=== PATIENT | male | born 1975 | race Caucasian/White ===

== ENCOUNTER 2018-04-06 13:19 | Inpatient (IN) | payer BC ==
[~2018-04-06] VITALS: Ht 190.5 cm; Wt 99.8 kg
[2018-04-06 13:28] VITALS: BP_SYST 150
[2018-04-06] MEDS ORDERED: PIPERACILLIN/TAZO 3.38 GM in NS 50 ML IV ONE (14:15)
[2018-04-06] MEDS ORDERED: MORPHINE 4 MG/ML INJ. SYRINGE IVP ONE (14:15)
[2018-04-06] MEDS ORDERED: DIPHENHYDRAMINE INJ 50 MG/ML VIAL IVP ONE (14:15)
[2018-04-06 14:18] LABS: BILIRUBIN,URINE NEGATIVE (NEGATIVE); BLOOD, URINE NEGATIVE (NEGATIVE); CLARITY/URINE CLEAR (CLEAR); COLOR,URINE YELLOW (YELLOW); GLUCOSE,URINE NEGATIVE (NEGATIVE); KETONES,URINE NEGATIVE (NEGATIVE); LEUKOCYTE ESTERASE ,URINE NEGATIVE (NEGATIVE); NITRITE, URINE NEGATIVE (NEGATIVE); PH,URINE 7.5 (5.0-8.0); PROTEIN URINE NEGATIVE (NEGATIVE); UROBILINOGEN,URINE 0.2 (0.2-1.0)
[2018-04-06 14:38] LABS: BASOPHILS # (AUTO) 0.1 K/uL (0.0-0.2); BASOPHILS % (AUTO) 1.3 % (0.0-2.0); EOSINOPHILS # (AUTO) 0.1 K/uL (0.0-0.4); EOSINOPHILS % (AUTO) 1.2 % (0.0-4.0); HEMATOCRIT 44.5 % (36-54)
[2018-04-06 14:41] LABS: HEMOGLOBIN 14.4 g/dL (14.0-18.0); LYMPHOCYTES # (AUTO) 2.2 K/uL (1.0-5.5); LYMPHOCYTES % (AUTO) 27.9 % (20.5-51.5); MEAN CORPUSCULAR HEMOGLOBIN 29 pg (27-31); MEAN CORPUSCULAR HGB CONC 33 % (32-36); MEAN CORPUSCULAR VOLUME 89 fL (79.0-98.0); MONOCYTES # (AUTO) 0.7 K/uL (0.0-1.0); MONOCYTES % (AUTO) 8.3 % (1.7-9.3); NEUTROPHILS # (AUTO) 4.9 K/uL (1.8-7.7); NEUTROPHILS % (AUTO) 61.3 % (40.0-70.0); PLATELET COUNT (AUTO) 265 K/uL (130-430); RED BLOOD CELL COUNT(AUTO) 4.98 MIL/uL (4.2-6.2); RED CELL DISTRIBUTION WIDTH 12.9 % (9.0-15.0)
[2018-04-06 14:50] LABS: CALCIUM 9.9 mg/dL (8.4-11.0); CREATININE 0.94 mg/dL (0.55-1.30); POTASSIUM 4.3 mmol/L (3.5-5.1)
[2018-04-06] MEDS ORDERED: PIPERACILLIN/TAZOBACTAM 3.375 GM/VIAL (ZOSYN) IV ONE (14:50)
[2018-04-06 14:54] LABS: ALBUMIN 4.1 g/dL (3.4-4.8); TOTAL BILIRUBIN 0.9 mg/dL (0.0-1.0)
[2018-04-06] MEDS ORDERED: OXYC-580 PO (15:01)
[2018-04-06] MEDS ORDERED: ADAL20SY SQ (15:01)
[2018-04-06] MEDS ORDERED: ONDANSETRON HCL 4 MG/2 ML VIAL IVP PRN ×3 (15:45→19:30)
[2018-04-06] MEDS ORDERED: MORPHINE 4 MG/ML INJ. SYRINGE IVP PRN (15:45)
[2018-04-06] MEDS ORDERED: ACETAMINOPHEN 325 MG TABLET PO PRN (15:45)
[2018-04-06 16:06] VITALS: BP_SYST 149
[2018-04-06] MEDS: NACL 0.9% 1,000 ML IV SCH ×2 (16:21→23:45)
[2018-04-06] MEDS ORDERED: ACETAMINOPHEN/CODEINE 300 MG-30 MG TABLET PO PRN (18:30)
[2018-04-06] MEDS ORDERED: KETOROLAC TROMETHAMINE 30 MG VIAL IVP PRN (19:30)
[2018-04-06] MEDS ORDERED: fentaNYL CITRATE/PF 100 MCG/2 ML AMP IVP PRN ×2 (19:30)
[2018-04-06] MEDS ORDERED: fentaNYL CITRATE/PF 100 MCG/2 ML AMP ONE (21:12)
[2018-04-06] MEDS ORDERED: ONDANSETRON HCL 4 MG/2 ML VIAL ONE (21:14)
[2018-04-06 21:40] VITALS: BP_SYST 143
[2018-04-06 22:00] VITALS: BP_SYST 137
[2018-04-06] MEDS: MORPHINE 4 MG/ML INJ. SYRINGE IVP PRN (22:01)
[2018-04-06] MEDS: PIPERACILLIN/TAZO 3.375 GM in NS 50 ML IV SCH (23:01)
[2018-04-07 00:26] VITALS: BP_SYST 137
[2018-04-07] MEDS: MORPHINE 4 MG/ML INJ. SYRINGE IVP PRN ×3 (02:20→11:20)
[2018-04-07] MEDS: NACL 0.9% 1,000 ML IV SCH ×3 (05:01→22:50)
[2018-04-07] MEDS: PIPERACILLIN/TAZO 3.375 GM in NS 50 ML IV SCH ×3 (05:02→18:17)
[2018-04-07 06:45] LABS: BASOPHILS # (AUTO) 0.1 K/uL (0.0-0.2); BASOPHILS % (AUTO) 0.6 % (0.0-2.0); EOSINOPHILS % (AUTO) 0.1 % (0.0-4.0); HEMOGLOBIN 13.8 g/dL (14.0-18.0); LYMPHOCYTES # (AUTO) 1.5 K/uL (1.0-5.5); LYMPHOCYTES % (AUTO) 16.5 % (20.5-51.5); MEAN CORPUSCULAR HEMOGLOBIN 29 pg (27-31); MEAN CORPUSCULAR HGB CONC 32 % (32-36); MEAN CORPUSCULAR VOLUME 89 fL (79.0-98.0); MONOCYTES # (AUTO) 0.6 K/uL (0.0-1.0); MONOCYTES % (AUTO) 6.8 % (1.7-9.3); NEUTROPHILS # (AUTO) 6.7 K/uL (1.8-7.7); PLATELET COUNT (AUTO) 251 K/uL (130-430); RED BLOOD CELL COUNT(AUTO) 4.81 MIL/uL (4.2-6.2); WHITE BLOOD COUNT (AUTO) 8.9 K/uL (4.8-10.8)
[2018-04-07 07:12] LABS: ALBUMIN 3.4 g/dL (3.4-4.8); CALCIUM 9.3 mg/dL (8.4-11.0); CREATININE 1.15 mg/dL (0.55-1.30); POTASSIUM 4.1 mmol/L (3.5-5.1); TOTAL BILIRUBIN 0.8 mg/dL (0.0-1.0)
[2018-04-07] MEDS ORDERED: MORPHINE 4 MG/ML INJ. SYRINGE IVP ONE ×2 (08:45)
[2018-04-07] MEDS: PANTOPRAZOLE SODIUM 40 MG/VIAL (PROTONIX) IVP SCH (08:54)
[2018-04-07 09:16] VITALS: BP_SYST 135
[2018-04-07 12:02] VITALS: BP_SYST 154
[2018-04-07] MEDS: HYDROmorphone 1 MG INJ. 1 MG/ML AMPUL IVP PRN ×3 (12:14→18:46)
[2018-04-07] MEDS ORDERED: DOCUSATE SODIUM 100 MG CAPSULE PO PRN (15:45)
[2018-04-07] MEDS ORDERED: TEMAZEPAM 7.5 MG CAPSULE PO PRN (18:00)
[2018-04-07] MEDS ORDERED: HYDROcodone/ACETAMIN 10-325 MG TAB PO PRN (18:00)
[2018-04-07 19:50] VITALS: BP_SYST 144
[2018-04-07] MEDS: HYDROcodone/ACETAMIN 10-325 MG TAB PO PRN (22:49)
[2018-04-08] VITALS: BP_SYST 117
[2018-04-08] MEDS: HYDROmorphone 1 MG INJ. 1 MG/ML AMPUL IVP PRN (00:05)
[2018-04-08] MEDS: PIPERACILLIN/TAZO 3.375 GM in NS 50 ML IV SCH ×4 (00:06→17:09)
[2018-04-08] MEDS: HYDROcodone/ACETAMIN 10-325 MG TAB PO PRN ×3 (05:49→20:09)
[2018-04-08 07:30] LABS: BASOPHILS % (AUTO) 0.4 % (0.0-2.0); EOSINOPHILS # (AUTO) 0.2 K/uL (0.0-0.4); EOSINOPHILS % (AUTO) 2.3 % (0.0-4.0); HEMATOCRIT 39.7 % (36-54); LYMPHOCYTES # (AUTO) 2.4 K/uL (1.0-5.5); LYMPHOCYTES % (AUTO) 29.8 % (20.5-51.5); MEAN CORPUSCULAR HEMOGLOBIN 29 pg (27-31); MEAN CORPUSCULAR HGB CONC 33 % (32-36); MEAN CORPUSCULAR VOLUME 89 fL (79.0-98.0); MONOCYTES # (AUTO) 0.5 K/uL (0.0-1.0); MONOCYTES % (AUTO) 6.2 % (1.7-9.3); NEUTROPHILS # (AUTO) 4.9 K/uL (1.8-7.7); NEUTROPHILS % (AUTO) 61.3 % (40.0-70.0); PLATELET COUNT (AUTO) 249 K/uL (130-430); RED BLOOD CELL COUNT(AUTO) 4.47 MIL/uL (4.2-6.2); RED CELL DISTRIBUTION WIDTH 12.9 % (9.0-15.0)
[2018-04-08] MEDS: NACL 0.9% 1,000 ML IV SCH (07:32)
[2018-04-08] MEDS ORDERED: MORPHINE 4 MG/ML INJ. SYRINGE IVP PRN ×2 (07:45)
[2018-04-08] MEDS ORDERED: ACETAMINOPHEN 325 MG TABLET PO PRN (07:45)
[2018-04-08] MEDS: PANTOPRAZOLE SODIUM 40 MG/VIAL (PROTONIX) IVP SCH (08:05)
[2018-04-08 08:10] VITALS: BP_SYST 126
[2018-04-08] MEDS ORDERED: HYDROcodone/ACETAMIN 10-325 MG TAB PO PRN (11:15)
[2018-04-08 12:00] VITALS: BP_SYST 129
[2018-04-08] MEDS: metroNIDAZOLE 500 mg/NS 100 ML IV SCH ×2 (13:49→22:34)
[2018-04-08 17:17] VITALS: BP_SYST 136
[2018-04-08 19:25] VITALS: BP_SYST 140
[2018-04-09] MEDS: PIPERACILLIN/TAZO 3.375 GM in NS 50 ML IV SCH ×3 (01:07→11:45)
[2018-04-09 02:56] VITALS: BP_SYST 138
[2018-04-09] MEDS: metroNIDAZOLE 500 mg/NS 100 ML IV SCH (05:37)
[2018-04-09 08:00] VITALS: BP_SYST 124
[2018-04-09] MEDS: PANTOPRAZOLE SODIUM 40 MG/VIAL (PROTONIX) IVP SCH (08:50)
[2018-04-09] MEDS: HYDROcodone/ACETAMIN 10-325 MG TAB PO PRN (09:08)
[2018-04-09] MEDS ORDERED: METR500T PO (10:27)
[2018-04-09] MEDS ORDERED: AMOX-426 PO (10:27)
[2018-04-09 12:37] VITALS: BP_SYST 121
[2018-04-09 13:10] VITALS: BP_SYST 133
== END 2018-04-09 13:30 | disposition home or self-care (01) | DRG 339 ==
LOC: SED 13:19 → STU 15:31 → SMU 04-08 07:57
PROVIDERS: ADMIT Internal Medicine; ATTEND Internal Medicine
PROC: 0DTJ4ZZ Resection of Appendix, Percutaneous Endoscopic Approach (ICD-10-PCS; principal; 2018-04-06 18:00)
DX: K35.32 Acute appendicitis with perforation, localized peritonitis, and gangrene, without abscess (principal); K56.7 Ileus, unspecified; M06.9 Rheumatoid arthritis, unspecified; Z79.899 Other long term (current) drug therapy; G89.29 Other chronic pain
CPT/HCPCS: 36415; 71045; 80053; 81003; 83605; 83690-TC; 85025; 85610-TC; 87040-TC; 87070-TC; 87075-TC; 87081; 88304; 93005; 94010; 99285; C9113; J1170; J2270; J2405; J2543; J3010; J3490; J7030